=== PATIENT | female | born 1980 | race Caucasian/White ===

== ENCOUNTER 2021-04-22 10:01 | Emergency (ER) | payer MEDICAID, SELFPAY ==
[~2021-04-22] VITALS: Ht 172.7 cm; Wt 66.7 kg
[2021-04-22 10:05] VITALS: BP_SYST 141
--- NOTE | 2021-04-22 10:05 | NUR ---
Placed in room 6 . Placed on broke man, blood pressure machine and pulse oximeter. To gown for exam. Side rails up. Report given to DANNY JOYCE.
[2021-04-22 10:37] LABS: BILIRUBIN,URINE NEGATIVE (NEGATIVE); BLOOD, URINE 3+ (NEGATIVE); COLOR,URINE YELLOW (YELLOW); GLUCOSE,URINE NEGATIVE (NEGATIVE); KETONES,URINE NEGATIVE (NEGATIVE); LEUKOCYTE ESTERASE ,URINE 3+ (NEGATIVE); NITRITE, URINE POSITIVE (NEGATIVE); PROTEIN URINE 2+ (NEGATIVE); UROBILINOGEN,URINE 0.2 (0.2-1.0)
--- NOTE | 2021-04-22 10:37 | NUR ---
urine pre neg, blood to lab, pt to ct scan
[2021-04-22 10:48] LABS: BASOPHILS % (AUTO) 0.2 % (0.0-2.0); EOSINOPHILS % (AUTO) 0.3 % (0.0-4.0); HEMATOCRIT 38.1 % (36-48); HEMOGLOBIN 12.6 g/dL (12.0-16.0); LYMPHOCYTES % (AUTO) 10.1 % (20.5-51.5); MEAN CORPUSCULAR HEMOGLOBIN 28 pg (27-31); MEAN CORPUSCULAR HGB CONC 33 % (32-36); MEAN CORPUSCULAR VOLUME 85 fL (79.0-98.0); MONOCYTES # (AUTO) 0.5 K/uL (0.0-1.0); MONOCYTES % (AUTO) 4.9 % (1.7-9.3); NEUTROPHILS # (AUTO) 8.6 K/uL (1.8-7.7); NEUTROPHILS % (AUTO) 84.5 % (40.0-70.0); PLATELET COUNT (AUTO) 272 K/uL (130-430); RED BLOOD CELL COUNT(AUTO) 4.49 MIL/uL (4.2-6.2); RED CELL DISTRIBUTION WIDTH 14.4 % (9.0-15.0); WHITE BLOOD COUNT (AUTO) 10.2 K/uL (4.8-10.8)
[2021-04-22 10:55] LABS: CLARITY/URINE HAZY (CLEAR)
[2021-04-22 10:57] LABS: BACTERIA,URINE FEW /HPF (None Seen); RBC,URINE 20-50 /HPF (0-3); WBC,URINE 20-50 /HPF (0-3)
[2021-04-22 11:01] LABS: ANION GAP 9 (5-15); CALCIUM 8.6 mg/dL (8.4-11.0); CHLORIDE 102 mmol/L (98-107); GLUCOSE 108 mg/dL (70-99); POTASSIUM 3.8 mmol/L (3.5-5.1); SODIUM SERUM 137 mmol/L (136-145); UREA NITROGEN, BLOOD 8 mg/dL (8-21)
[2021-04-22 11:06] LABS: ALANINE AMINOTRANSFERASE 15 U/L (12-78); ALBUMIN 4.1 g/dL (3.4-4.8); AMYLASE 57 U/L (0-100); ASPARTATE AMINOTRANSFERASE 11 U/L (10-37); LIPASE 108 U/L (73-393)
[2021-04-22 11:07] LABS: GFR AFRICAN AMERICAN 143 mL/min (>90)
[2021-04-22 11:25] LABS: C-REACTIVE PROTEIN QUANT < 0.2 mg/dL (0-0.5)
[2021-04-22] MEDS ORDERED: cefTRIAXone 1 GM in LIDOCAINE 1%, 20 ML MDV 2.1 ML IM ONE (11:30)
[2021-04-22] MEDS ORDERED: IBUP-1969 PO (11:38)
[2021-04-22] MEDS ORDERED: NITR-85 PO (11:38)
[2021-04-22 11:44] VITALS: BP_SYST 133
--- NOTE | 2021-04-22 11:45 | NUR ---
Patient given written and verbal discharge instructions and verbalizes understanding. LION dowling MD discussed with patient the results and treatment provided. Patient in stable condition. ID arm band removed. Rx of motrin, macrobid given. Patient educated on pain management and to follow up with PMD. Pain Scale 2. Opportunity for questions provided and answered. Medication side effect fact sheet provided.
== END 2021-04-22 11:45 | disposition home or self-care (01) ==
LOC: SED 10:01
DX: N12 Tubulo-interstitial nephritis, not specified as acute or chronic (principal)
CPT/HCPCS: 36415; 74176; 76376; 80053; 81000; 81025; 82150; 83605; 83690; 84703; 85025; 86140; 87086; 96372; 99284; J0696; J2001

== ENCOUNTER 2023-10-23 19:11 | Emergency (ER) | payer MEDICAID, OTHER ==
[~2023-10-23] VITALS: Ht 175.3 cm; Wt 68.9 kg
[~2023-10-23 19:11] MED LIST: IBUP-1969 PO; NITR-85 PO
[2023-10-23 19:27] VITALS: BP_SYST 136; PULSE 71; RESP 16; TEMP 98.7; O2SAT 98
[2023-10-23 20:01] LABS: BILIRUBIN,URINE NEGATIVE (NEGATIVE); BLOOD, URINE NEGATIVE (NEGATIVE); CLARITY/URINE CLEAR (CLEAR); COLOR,URINE YELLOW (YELLOW); GLUCOSE,URINE NEGATIVE (NEGATIVE); KETONES,URINE NEGATIVE (NEGATIVE); LEUKOCYTE ESTERASE ,URINE 1+ (NEGATIVE); NITRITE, URINE NEGATIVE (NEGATIVE); PROTEIN URINE NEGATIVE (NEGATIVE); UROBILINOGEN,URINE 0.2 (0.2-1.0)
[2023-10-23 20:34] LABS: BACTERIA,URINE FEW /HPF (None Seen); RBC,URINE 0-3 /HPF (0-3)
[2023-10-23] MEDS ORDERED: NITR-85 PO (23:13)
[2023-10-23 23:22] VITALS: BP_SYST 119; PULSE 78; RESP 18; TEMP 98.6; O2SAT 99
== END 2023-10-23 23:22 | disposition home or self-care (01) ==
LOC: SED 19:11
DX: N39.0 Urinary tract infection, site not specified (principal); R10.30 Lower abdominal pain, unspecified; N80.9 Endometriosis, unspecified; Z79.899 Other long term (current) drug therapy
CPT/HCPCS: 81000; 81001; 81015; 81025; 99283